=== PATIENT | female | born 1970 | race Caucasian/White ===

== ENCOUNTER → 2023-02-20 07:37 | Outpatient (CLI) | payer OTHER, SELFPAY ==
--- NOTE | 2023-02-20 | DI.MRI.S_ITS ---
PROCEDURE: MR CERVICAL SPINE WO CON INDICATIONS: Mid-cervical disc disorder, unspecified level TECHNIQUE: Noncontrast sagittal T1 spin echo and T2 fast spin echo, sagittal STIR, foraminal oblique sagittal T2 fast spin echo, and axial gradient echo or T2 fast spin echo through the cervical spine. COMPARISON: None. FINDINGS: Image quality: Excellent. Alignment and Curvature: Straightening of the normal cervical lordosis. Mild retrolisthesis of C4 on C5. Postsurgical changes from Bone Marrow: C5 through C7 ACDF. Marrow is otherwise within normal limits. Spinal Cord: Visualized spinal cord has normal size and signal. No cerebellar tonsillar herniation. Paraspinous Soft Tissues: No paravertebral masses. Prevertebral soft tissues are normal in thickness. C2-C3: Normal appearance. C3-C4: Disc desiccation and posterior disc osteophyte complex. Mild central canal stenosis. Facet and uncovertebral arthropathy. Severe left and mild right neural foraminal stenosis. C4-C5: Disc desiccation height loss with posterior disc osteophyte complex. Mild central canal stenosis. Facet and uncovertebral arthropathy. Severe left and moderate right neural foraminal stenosis. C5-C6: ACDF. Facet and uncovertebral arthropathy. No central canal stenosis. Mild neural foraminal stenosis bilaterally. C6-C7: ACDF. No central canal stenosis. Facet and uncovertebral arthropathy. Mild bilateral neural foraminal stenosis. C7-T1: No central canal or neural foraminal stenosis. IMPRESSION: 1. Multilevel degenerative changes of the cervical spine status post C5 through C7 ACDF. 2. Mild central canal stenosis at C3-C4 and C4-C5. 3. Severe left neural foraminal stenosis at C3-C4 and C4-C5. See above for additional levels of neural foraminal stenosis. Dictated by: Manjeet Cotter M.D. on 02/20/2023 at 10:14 Approved by: Manjeet Cotter M.D. on 02/20/2023 at 10:27
== END ==
PROVIDERS: Referring Provider Preventive Medicine Occupational Medicine; Visit Provider Preventive Medicine Occupational Medicine
DX: M47.812 Spondylosis without myelopathy or radiculopathy, cervical region (principal); M48.02 Spinal stenosis, cervical region; M50.120 Mid-cervical disc disorder, unspecified level; Z98.1 Arthrodesis status
CPT/HCPCS: 72141